=== PATIENT | male | born 1990 | race Caucasian/White ===

== ENCOUNTER 2021-04-09 14:41 | Emergency (ER) | payer OTHER ==
[2021-04-09] MEDS ORDERED: DIPH,PERTUSS(ACELL),TET VAC/PF 0.5 ML IM-VACC ONE ×2 (14:45→15:00)
[2021-04-09 14:54] VITALS: BP 132/94
[2021-04-09] MEDS ORDERED: NEOSPORIN OINT. PKT 1 PACKET ONE (15:03)
== END 2021-04-09 15:23 | disposition home or self-care (01) ==
LOC: EDBD 15:13 → ED 15:13
DX: S60.512A Abrasion of left hand, initial encounter (principal); S60.511A Abrasion of right hand, initial encounter; X58.XXXA Exposure to other specified factors, initial encounter; Y93.89 Activity, other specified; Y92.410 Unspecified street and highway as the place of occurrence of the external cause; Y99.8 Other external cause status
CPT/HCPCS: 90471; 90715